=== PATIENT | male | born 1970 | race Caucasian/White ===

== ENCOUNTER 2019-12-12 16:23 | Emergency (ER) | payer SELFPAY ==
[~2019-12-12] VITALS: Ht 175.3 cm; Wt 73.1 kg
--- NOTE | 2019-12-12 17:15 | NUR ---
ASSUMED CARE OF PATIENT. PATIENT REPORTS HE USUALLY DRINKS EVERY DAY BUT TWO DAYS AGO HE DRANK A LOT. SINCE HE HAS NOT HAD A DRINK SINCE SUN. TODAY, PT REPORTS VOMITING. YESTERDAY, PT HAD EPIGASTRIC ABD PAIN THAT HAS NOW RESOLVED. 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 SINUS TACH NOTED. CALL LIGHT IN PLACE. WILL CONTINUE TO MONITOR.
[2019-12-12] MEDS ORDERED: SODIUM CHLORIDE 0.9% 1,000ML IVBOLUS ONE (17:30)
[2019-12-12] MEDS ORDERED: SODIUM CHLORIDE FLUSH 10ML SYR IVF ONE (17:30)
--- NOTE | 2019-12-12 17:51 | NUR ---
LAB IN ROOM. 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 SINUS TACH NOTED. WILL CONTINU TO MONITOR.
[2019-12-12 18:05] LABS: BASOPHILS % (AUTO) 1 % (0-1); EOSINOPHILS % (AUTO) 0 % (1-7); LYMPHOCYTES % (AUTO) 12 % (22-44); MEAN CORPUSCULAR HEMOGLOBIN 32.4 pg (27.5-34.5); MEAN CORPUSCULAR HGB CONC 33.8 g/dL (33.2-36.2); MEAN PLATELET VOLUME 7.4 fL (7.4-10.4); MONOCYTES % (AUTO) 11 % (2-9); NEUTROPHILS % (AUTO) 77 % (42-75); PLATELET COUNT 254 x10^3/uL (130-400); RED BLOOD COUNT 5.74 x10^6/uL (4.38-5.82); RED CELL DISTRIBUTION WIDTH 13.7 % (9.4-14.8)
--- NOTE | 2019-12-12 18:06 | NUR ---
REPORT GIVEN TO DONATO VAZQUEZ FOR BREAK.
[2019-12-12 18:07] LABS: MD NO
[2019-12-12 18:09] LABS: INTERNATIONAL NORMALIZED RATIO 1.05 (0.93-1.1); PROTHROMBIN TIME 11.1 Seconds (9.6-11.5)
[2019-12-12 18:10] LABS: ALBUMIN 4.6 g/dL (3.4-5.0); ANION GAP 7 mmol/L (5-15); CALCIUM 9.6 mg/dL (8.5-10.1); CHLORIDE 99 mmol/L (98-107)
[2019-12-12 18:13] LABS: ALANINE AMINOTRANSFERASE 55 U/L (12-78); ALKALINE PHOSPHATASE 65 U/L (45-117); BILIRUBIN,TOTAL 1.2 mg/dL (0.2-1.0); CREATININE 1.64 mg/dL (0.7-1.3); TOTAL PROTEIN 8.6 g/dL (6.4-8.2)
[2019-12-12 18:40] VITALS: BP 165/114
--- NOTE | 2019-12-12 18:53 | NUR ---
PT RESTING IN ROOM. REGULAR RESP. NO ACUTE DISTRESS NOTED. CALL LIGHT IN PLACE. WILL CONTINUE TO MONITOR.
--- NOTE | 2019-12-12 19:00 | NUR ---
REPORT GIVEN TO DONATO BLANC
== END 2019-12-12 20:16 | disposition home or self-care (01) ==
LOC: ED 19:35
DX: K22.6 Gastro-esophageal laceration-hemorrhage syndrome (principal); R11.2 Nausea with vomiting, unspecified; I49.3 Ventricular premature depolarization; R94.31 Abnormal electrocardiogram [ECG] [EKG]; R00.0 Tachycardia, unspecified; Z87.891 Personal history of nicotine dependence
CPT/HCPCS: 36415; 80053; 80307; 83690; 85025; 85610; 85730; 93005; 96360; 99285; J7030